=== PATIENT | female | born 1995 | race Two or more races ===

== ENCOUNTER 2017-04-29 22:23 | Outpatient (CLI) | payer OTHER ==
[~2017-04-29] VITALS: Ht 162.6 cm; Wt 96.8 kg
[2017-04-29 22:43] VITALS: BP 123/74
[2017-04-29] MEDS ORDERED: PREN1TAB60 PO (23:05)
== END 2017-04-29 23:20 | disposition home or self-care (01) ==
LOC: LDOP 22:23
PROVIDERS: ATTEND Obstetrics & Gynecology
DX: O26.893 Other specified pregnancy related conditions, third trimester (principal); O48.0 Post-term pregnancy; R10.9 Unspecified abdominal pain; Z3A.40 40 weeks gestation of pregnancy
CPT/HCPCS: 59025; 81001; 87086; 99211; G0463

== ENCOUNTER 2017-05-01 18:16 | Outpatient (CLI) | payer OTHER ==
[~2017-05-01] VITALS: Ht 162.6 cm; Wt 96.8 kg
[~2017-05-01 18:16] MED LIST: PREN1TAB60 PO
[2017-05-01 18:40] VITALS: BP 131/77
[2017-05-01] MEDS ORDERED: DIPHENHYDRAMINE 50 MG CAPSULE PO PRN (20:00)
[2017-05-01] MEDS ORDERED: OXYcodone/APAP 5/325MG TABLET PO PRN (20:00)
[2017-05-01] MEDS ORDERED: DIPHENHYDRAMINE 25 MG CAPSULE ONE (20:12)
[2017-05-01] MEDS ORDERED: OXYcodone/APAP 5/325MG TABLET ONE (20:13)
== END 2017-05-01 20:20 | disposition home or self-care (01) ==
LOC: LDOP 18:16
PROVIDERS: ATTEND Obstetrics & Gynecology
DX: O42.92 Full-term premature rupture of membranes, unspecified as to length of time between rupture and onset of labor (principal); O26.893 Other specified pregnancy related conditions, third trimester; R10.9 Unspecified abdominal pain; Z3A.40 40 weeks gestation of pregnancy
CPT/HCPCS: 59025; 89060; 99211; G0463; Q0114

== ENCOUNTER 2017-05-03 13:53 | Inpatient (IN) | payer MEDICAID, OTHER ==
[~2017-05-03] VITALS: Ht 162.6 cm; Wt 94.1 kg
[2017-05-03 14:15] VITALS: BP 126/71
[2017-05-03] MEDS ORDERED: OXYTOCIN 30U/ 0.9% NaCL 500ML 500 ML IV ONE (14:56)
[2017-05-03] MEDS: D5%-LACTATED RINGERS 1,000 ML IV SCH ×2 (14:56→23:32)
[2017-05-03] MEDS ORDERED: ONDANSETRON 2MG/ML, 2ML IVPush PRN (15:00)
[2017-05-03] MEDS ORDERED: CALCIUM CARBONATE 500 MG TAB.CHEW PO PRN (15:00)
[2017-05-03] MEDS ORDERED: FENTANYL PF 100 MCG/2ML IVPush PRN (15:00)
[2017-05-03] MEDS ORDERED: FENTANYL PF 100 MCG/2ML IV PRN (15:00)
[2017-05-03] MEDS: LACTATED RINGERS 1,000 ML IV SCH ×4 (15:25→19:48)
[2017-05-03] MEDS ORDERED: PLEASE ENTER HEIGHT AND WEIGHT MC SCH (15:30)
[2017-05-03 16:01] LABS: HEMATOCRIT 40.8 % (34.6-47.8); HEMOGLOBIN 13.4 g/dL (11.7-16.4); WHITE BLOOD COUNT 16.8 x10^3/uL (4.5-13.2)
[2017-05-03] MEDS ORDERED: FENTANYL PF 100 MCG/2ML ONE (17:57)
[2017-05-03] MEDS ORDERED: OXYTOCIN 30U/ 0.9% NaCL 500ML 500 ML ONE (17:57)
[2017-05-03] MEDS ORDERED: FENTANYL/BUPIV./NS/PF 250 ML EPIDCONT SCH (19:48)
[2017-05-03] MEDS ORDERED: FENTANYL/BUPIV./NS/PF 250 ML EPIDCONT ONE (19:50)
[2017-05-03] MEDS ORDERED: BUPIVACAINE/PF 0.25% ONE (19:50)
[2017-05-03] MEDS ORDERED: NALOXONE 0.4 MG/ML, 1ML IVPush PRN (20:00)
[2017-05-03] MEDS ORDERED: LACTATED RINGERS 1,000 ML IVBOLUS PRN (20:00)
[2017-05-03] MEDS ORDERED: EPHEDRINE 50 MG/ML, 1ML IVPush PRN (20:00)
[2017-05-03] MEDS ORDERED: OXYTOCIN 30U/ 0.9% NaCL 500ML 500 ML IV PRN (21:00)
[2017-05-04] MEDS: LACTATED RINGERS 1,000 ML IV SCH ×4 (03:48→22:56)
[2017-05-04] MEDS ORDERED: HYDROcodone/APAP 5/325 TABLET PO PRN ×2 (04:30)
[2017-05-04] MEDS ORDERED: IBUPROFEN 600 MG TABLET PO PRN (04:30)
[2017-05-04] MEDS ORDERED: CARBOPROST TROMETHAMINE 250 MCG/ML, 1ML IM PRN (04:30)
[2017-05-04] MEDS ORDERED: DOCUSATE 100 MG CAPSULE PO PRN (04:30)
[2017-05-04] MEDS ORDERED: METHYLERGONOVINE 0.2 MG/ML IM PRN (04:30)
[2017-05-04] MEDS ORDERED: ONDANSETRON 2MG/ML, 2ML IV PRN (04:30)
[2017-05-04] MEDS ORDERED: MISOPROSTOL 200 MCG TABLET PR PRN (04:30)
[2017-05-04] MEDS ORDERED: ACETAMINOPHEN 325 MG TABLET PO PRN (04:30)
[2017-05-04] MEDS ORDERED: OXYTOCIN 30U/ 0.9% NaCL 500ML 500 ML ONE (05:29)
[2017-05-04] MEDS: OXYTOCIN 30U/ 0.9% NaCL 500ML 500 ML IV SCH ×2 (05:31→14:21)
[2017-05-04] MEDS: D5%-LACTATED RINGERS 1,000 ML IV SCH ×3 (06:56→22:56)
[2017-05-04 07:35] VITALS: BP 122/77
[2017-05-04] MEDS: PRENATAL VIT/IRON/FA 1 EACH TABLET PO SCH (09:00)
[2017-05-04 11:46] LABS: HEMATOCRIT 35.5 % (34.6-47.8); HEMOGLOBIN 11.7 g/dL (11.7-16.4); WHITE BLOOD COUNT 19.1 x10^3/uL (4.5-13.2)
[2017-05-04 12:25] VITALS: BP 110/72
[2017-05-04 16:30] VITALS: BP 94/62
[2017-05-04 19:35] VITALS: BP 104/74
[2017-05-05 00:06] VITALS: BP 115/74
[2017-05-05] MEDS: OXYTOCIN 30U/ 0.9% NaCL 500ML 500 ML IV SCH ×3 (00:21→20:45)
[2017-05-05 03:58] VITALS: BP 115/71
[2017-05-05] MEDS ORDERED: IBUP-1223 PO (07:39)
[2017-05-05 08:13] VITALS: BP 117/67
[2017-05-05] MEDS: PRENATAL VIT/IRON/FA 1 EACH TABLET PO SCH (09:00)
[2017-05-05 12:42] VITALS: BP 100/66
[2017-05-05 19:25] VITALS: BP 112/70
[2017-05-06] MEDS: OXYTOCIN 30U/ 0.9% NaCL 500ML 500 ML IV SCH (06:21)
[2017-05-06 08:10] VITALS: BP 126/78
[2017-05-06] MEDS: PRENATAL VIT/IRON/FA 1 EACH TABLET PO SCH (08:46)
== END 2017-05-06 12:39 | disposition home or self-care (01) | DRG 775 ==
LOC: 2NW 13:53 → 2NE 13:55 → LDIP 14:30 → 2NW 05-04 07:15
PROVIDERS: ADMIT Obstetrics & Gynecology; ATTEND Obstetrics & Gynecology
PROC: 0T9B70Z Drainage of Bladder with Drainage Device, Via Natural or Artificial Opening (ICD-10-PCS; principal; 2017-05-03)
PROC: 10E0XZZ Delivery of Products of Conception, External Approach (ICD-10-PCS; 2017-05-03)
PROC: 3E0S3BZ Introduction of Anesthetic Agent into Epidural Space, Percutaneous Approach (ICD-10-PCS; 2017-05-03)
PROC: 00HU33Z Insertion of Infusion Device into Spinal Canal, Percutaneous Approach (ICD-10-PCS; 2017-05-03)
DX: O48.0 Post-term pregnancy (principal); O77.0 Labor and delivery complicated by meconium in amniotic fluid; Z37.0 Single live birth; Z3A.40 40 weeks gestation of pregnancy
CPT/HCPCS: 36415; 81003; 82803; 85025; 86850; 86900; J3010; J2590; J7120; J7121